=== PATIENT | male | born 1985 | race Caucasian/White ===

== ENCOUNTER 2017-04-02 14:34 | Emergency (ER) | payer SELFPAY ==
[~2017-04-02] VITALS: Ht 175.3 cm; Wt 68.0 kg
[~2017-04-02 14:34] MED LIST: CLON.1 PO; ONDA4 PO
[2017-04-02 14:35] VITALS: BP 142/86; PULSE 104; RESP 20; TEMP 97.7; O2SAT 98
[2017-04-02] MEDS ORDERED: SUBO8MIS SL (17:44)
[2017-04-02] MEDS ORDERED: SODIUM CHLOR 0.9% 1000 ML INJ 1,000 ML IV ONE (17:45)
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
[2017-04-02 18:13] LABS: BASOPHIL % 0.1 % (0.0-2.0); EOSINOPHIL # 0.1 TH/MM3 (0-0.4); EOSINOPHIL % 1.1 % (0.0-4.0); HEMATOCRIT 45.8 % (39.0-51.0); HEMO FLAGS DIFF FINAL; LYMPH % 9.1 % (9.0-44.0); MEAN CELL VOLUME 97.8 FL (80.0-100.0); MEAN CORPUSCULAR HGB CONC 33.8 % (32.0-36.0); MONO % 9.9 % (0.0-8.0); NEUT % 79.8 % (16.0-70.0); PLATELET COUNT 211 TH/MM3 (150-450); RED BLOOD COUNT 4.69 MIL/MM3 (4.50-5.90); RED CELL DISTRIBUTION WIDTH 12.7 % (11.6-17.2); WHITE BLOOD COUNT 11.2 TH/MM3 (4.0-11.0)
[2017-04-02 18:26] LABS: APTT (PATIENT) 27.3 SEC (24.3-30.1); PROTHROMBIN TIME - PATIENT 11.4 SEC (9.8-11.6)
[2017-04-02 18:30] LABS: BLOOD, URINE NEG (NEG); GLUCOSE,URINE NEG (NEG); KETONE, URINE NEG (NEG); MUCUS URINE FEW /lpf (OCC); NITRITE,URINE NEG (NEG); URINE COLOR YELLOW (YELLW/STRAW)
[2017-04-02 18:31] LABS: COMMENT (UR) CATH-CULT NOT IND; CULTURE IF INDICATED CATH CULTURE NOT IND
[2017-04-02 18:44] VITALS: BP 128/75; PULSE 93; RESP 24; O2SAT 100
[2017-04-02 18:54] LABS: ALKALINE PHOSPHATASE 57 U/L (45-117); ALT (GPT) 24 U/L (12-78); ANION GAP 9 MEQ/L (5-15); AST (GOT) 20 U/L (15-37); BICARBONATE 23.6 MEQ/L (21.0-32.0); BLOOD UREA NITROGEN 9 MG/DL (7-18); CHLORIDE 106 MEQ/L (98-107); GLOMERULAR FILTRATION RATE 119 ML/MIN (>89); POTASSIUM 4.2 MEQ/L (3.5-5.1); SODIUM (NA) 139 MEQ/L (136-145); TOTAL BILIRUBIN ADULT 0.8 MG/DL (0.2-1.0)
[2017-04-02 18:56] LABS: CREATINE KINASE 93 U/L (39-308)
[2017-04-02 19:25] VITALS: BP 146/79; PULSE 82; RESP 20; O2SAT 100
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
[2017-04-02] MEDS ORDERED: CEPH-460 PO (20:38)
[2017-04-02] MEDS ORDERED: LEVA750T9 PO (20:38)
[2017-04-02] MEDS ORDERED: DOXY1CAP91 PO (20:38)
[2017-04-02] MEDS ORDERED: CEPHALEXIN MONOHYDRATE 500 MG CAP PO ONE (20:45)
[2017-04-02] MEDS ORDERED: LEVOFLOXACIN 750 MG TAB PO ONE (20:45)
[2017-04-02] MEDS ORDERED: MUPIROCIN 2% CREAM 15 GM TOPICAL ONE (20:45)
[2017-04-02] MEDS ORDERED: DOXYCYCLINE HYCLATE 100 MG CAP PO ONE (20:45)
== END 2017-04-02 21:42 | disposition home or self-care (01) ==
LOC: NEPE 14:34
DX: L53.9 Erythematous condition, unspecified (principal); D72.829 Elevated white blood cell count, unspecified; R00.0 Tachycardia, unspecified; F17.200 Nicotine dependence, unspecified, uncomplicated; Z79.899 Other long term (current) drug therapy
CPT/HCPCS: 80053; 81001; 82550; 83605; 84100; 84484; 85025; 85610; 85730; 86403; 87070; 96360; 99284; J7030; 87205